=== PATIENT | male | born 1980 | race Two or more races ===

== ENCOUNTER 2017-03-23 07:14 | Outpatient (CLI) | payer OTHER ==
--- NOTE | 2017-03-23 12:06 | MRI Report ---
EXAM: LEFT KNEE MRI WITHOUT CONTRAST EXAM DATE: 03/23/2017 08:14 AM. CLINICAL HISTORY: Left knee pain. COMPARISON: None. TECHNIQUE: Multiplanar, multisequence T1-weighted and fluid-sensitive sequences of the knee without c ontrast. Other: None. FINDINGS: Bones: No fractures. There is periarticular marrow edema in the central patella. Articular Cartilage: The central patellar cartilage has severe thinning. There is mild thinning and s urface irregularity in the tibiofemoral joint. Medial Meniscus: The medial meniscus is intact. Lateral Meniscus: The lateral meniscus is intact. Cruciate Ligaments: The anterior and posterior cruciate ligaments are intact. Collateral Ligaments: The medial collateral and lateral collateral ligamentous structures are intact. Tendons: The quadriceps, patellar, semimembranosus, and popliteus tendons are unremarkable. Musculature: No edema or fatty atrophy. Other: No effusion. No popliteal cyst. There is a platelike loose body anterior to the lateral joint space. It measures 2 x 14 x 8 mm. The medial and lateral retinacula are intact. Prepatellar subcutane ous edema is present. IMPRESSION: There is a 14 mm loose body anterior to the lateral joint space. The donor site may be th e cartilage from the central patella. [facility]CULOSKE[facility] SECTION Referring Provider Line: [phone] SITE ID: [id number]
== END 2017-03-23 07:15 | disposition home or self-care (01) ==
LOC: DI 07:14
PROVIDERS: ATTEND Student in an Organized Health Care Education/Training Program
DX: M23.42 Loose body in knee, left knee (principal)